=== PATIENT | female | born 1985 | race Caucasian/White ===

== ENCOUNTER 2016-08-15 09:42 | Emergency (ER) | payer OTHER ==
[~2016-08-15 09:42] MED LIST: AMOXICILLIN875 MG PO; DIFLUCAN PO; LORTAB 5-325 M1 EACH PO; NO MEDICATIONS
== END 2016-08-15 09:46 | disposition home or self-care (01) ==
LOC: SED 09:42
DX: R21 Rash and other nonspecific skin eruption (principal); F17.200 Nicotine dependence, unspecified, uncomplicated
CPT/HCPCS: 99282

== ENCOUNTER 2016-09-12 11:38 | Emergency (ER) | payer OTHER ==
--- NOTE | ~2016-09-12 | CR281 ---
[facility]. [facility] A Service of [facility] RADIOLOGY TEXT RESULTS PATIENT: NARCISA GARCIA LOCATION: SED : 87 UNIT #: [id number] AGE: [address]: MARTHA HAYES SEX: F ORDER DR: [id number] [place] [id number] MR#: [id number] Acc #: [id number] NAME: NARCISA GARCIA : 1985 SEX: F STUDY DATE/TIME: 09/12/2016 UNIT: SED ROOM: STUDY DESCRIPTION: CR Wrist Min 3 View Lt Attending Physician: Martha Hayes Aprn Ordering Physician: Martha Hayes Aprn Primary Care Physician: No Primary Care Physician MEDICAL IMAGING REPORT This report is preliminary unless electronic signature is present. EXAM Left wrist 09/12/2016 1159 hours. HISTORY 30-year-old complaining of pain in the hand and wrist for 1 week following injury. Progression of symptoms. COMPARISON None. FINDINGS AP, lateral, and oblique views suggest osteopenia, although this could be technical. The distal radius and ulna, carpal bones and metacarpals are intact. IMPRESSION Question underlying osteopenia versus technical factors. There is no fracture, dislocation or degenerative change. Dictated by... Autumn Sr M.D. THIS IS AN ELECTRONICALLY VERIFIED REPORT Autumn Sr M.D. at 09/12/2016 2:26 PM TED/carlos TD: 09/12/2016 12:29 JOB #: [id number] MEDICAL IMAGING REPORT [facility] A Service [facility] RADIOLOGY TEXT RESULTS PATIENT: NARCISA GARCIA LOCATION: SED : 87 UNIT #: [id number] AGE: [address]: MARTHA HAYES SEX: F ORDER DR: Page 1 of 1
--- NOTE | ~2016-09-12 | CR141 ---
[facility] [[email or web address] A Service of [facility] RADIOLOGY TEXT RESULTS PATIENT: NARCISA GARCIA LOCATION: SED : 87 UNIT #: [id number] AGE: [address]: MARTHA HAYES SEX: F ORDER DR: [id number] [place] [id number] P MR#: [id number] Acc #: [id number] NAME: NARCISA GARCIA : 1985 SEX: F STUDY DATE/TIME: 09/12/2016 11:59 UNIT: SED ROOM: STUDY DESCRIPTION: CR Hand Min 3 Views Lt Attending Physician: Martha Hayes Aprn Ordering Physician: Martha Hayes Aprn Primary Care Physician: No Primary Care Physician MEDICAL IMAGING REPORT This report is preliminary unless electronic signature is present. EXAM Left hand 3 views 09/12/2016 1159 hours HISTORY 30-year-old with injury 1 week ago with persistent hand and wrist pain with progression. COMPARISON None. FINDINGS AP, lateral and oblique views demonstrate probable osteopenia though this could be technical. The distal radius and ulna, carpal bones, metacarpals and fingers appear normal. 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 IMPRESSION Question underlying osteopenia versus technical changes. There is no fracture or dislocation. Dictated by... Autumn Sr M.D. THIS IS AN ELECTRONICALLY VERIFIED REPORT Autumn Sr M.D. at 09/12/2016 2:26 PM TED/jarvis TD: 09/12/2016 12:28 JOB #: [id number] MEDICAL IMAGING REPORT Page 1 of 1
== END 2016-09-12 12:50 | disposition home or self-care (01) ==
LOC: SED 11:38
DX: S66.912A Strain of unspecified muscle, fascia and tendon at wrist and hand level, left hand, initial encounter (principal); J45.909 Unspecified asthma, uncomplicated; F17.210 Nicotine dependence, cigarettes, uncomplicated; X58.XXXA Exposure to other specified factors, initial encounter
CPT/HCPCS: 29125; 73110; 73130; 99283

== ENCOUNTER 2016-09-25 13:20 | Emergency (ER) | payer OTHER ==
--- NOTE | ~2016-09-25 | CR156 ---
[facility]. [facility] A Service of [facility] & [facility] RADIOLOGY TEXT RESULTS PATIENT: NARCISA GARCIA LOCATION: SED : 87 UNIT #: [id number] AGE: [address]: Shweta Garcia MD SEX: F ORDER DR: [id number] [place] [id number] MR#: [id number] Acc #: [id number] NAME: NARCISA GARCIA : 1985 SEX: F STUDY DATE/TIME: 09/25/2016 13:52 UNIT: SED ROOM: STUDY DESCRIPTION: CR Humerus Min 2 View Lt Attending Physician: Shweta Garcia M.D. Ordering Physician: Shweta Garcia M.D. Primary Care Physician: No Primary Care Physician MEDICAL IMAGING REPORT This report is preliminary unless electronic signature is present. EXAM Left humerus series 09/25/2016 HISTORY Pain entire length of the left humerus began 2 days ago. States ran into a wall. FINDINGS AP, internal externalization views of the left humerus are presented. No fracture or malalignment. The shoulder and elbow joints appear normal on the views presented. The visualized left ribs are intact. Visualized pulmonary parenchyma clear. Question small left pleural effusion. Periarticular soft tissues unremarkable. Dictated by... Jeremy Teresa M.D. THIS IS AN ELECTRONICALLY VERIFIED REPORT Jeremy Teresa M.D. at 09/26/2016 6:32 PM Mary Ellen TD: 09/25/2016 18:33 JOB #: [id number] MEDICAL IMAGING REPORT Page 1 of 1
== END 2016-09-25 14:43 | disposition home or self-care (01) ==
LOC: SED 13:20
DX: S40.022A Contusion of left upper arm, initial encounter (principal); F17.200 Nicotine dependence, unspecified, uncomplicated; W22.8XXA Striking against or struck by other objects, initial encounter
CPT/HCPCS: 73060; 99283